=== PATIENT | female | born 1970 | race Caucasian/White ===

== ENCOUNTER 2016-11-21 10:21 | Emergency (ER) | payer MEDICARE, MEDICAID ==
[2016-11-21 11:58] LABS: BASOPHILS 0.1 % (0-2); EOSINOPHILS 0.1 % (0-7); HEMATOCRIT 42.3 % (36.0-48.0); HEMOGLOBIN 14.7 g/dL (12-16); IMMATURE GRANULOCYTES 0.2 % (0-5); LYMPHOCYTES 8.3 % (15-50); MCH 32.8 pg (26.0-34.0); MCHC 34.8 g/dL (31.0-37.0); MCV 94.4 fL (80.0-100.0); MEAN PLATELET VOLUME 11.3 fL (7.4-10.4); MONOCYTES 8.7 % (2-11); NEUTROPHILS 82.6 % (40-80); PLATELET COUNT 146 10x3/uL (130-400); RBC 4.48 10x6/uL (4.00-5.40); RDW 12.4 % (11.5-14.5); WBC 9.5 10x3/uL (4.8-10.8)
[2016-11-21 12:27] LABS: APPEARANCE CLOUDY (CLEAR); COLOR DK YELLOW (YELLOW)
[2016-11-21 12:28] LABS: BACTERIA MODERATE /hpf (NONE SEEN); BILIRUBIN NEGATIVE (NEGATIVE); EPITHELIAL CELLS RARE /hpf (0-5); GLUCOSE 1000 mg/dL (NEGATIVE); KETONE MODERATE mg/dL (NEGATIVE); LEUKOCYTE ESTERASE 1+ (NEGATIVE); NITRITE POSITIVE (NEGATIVE); PROTEIN 1+ mg/dL (NEGATIVE); RED CELLS - URINE 0-5 /hpf (0-5); SPECIFIC GRAVITY 1.015 (1.005-1.020); UROBILINOGEN NORMAL (NORMAL); WHITE CELLS - URINE 25-50 /hpf (0-5)
[2016-11-21 12:29] LABS: MUCUS <1+ /lpf (NONE SEEN)
== END 2016-11-21 12:39 | disposition home or self-care (01) ==
LOC: D.ER 10:21
PROVIDERS: Physician Assistant
DX: N39.0 Urinary tract infection, site not specified (principal); R50.9 Fever, unspecified; M54.5 Low back pain; R11.0 Nausea; R53.83 Other fatigue; R39.15 Urgency of urination; R30.0 Dysuria

== ENCOUNTER 2017-04-23 00:54 | Emergency (ER) | payer MEDICARE | END 2017-04-23 01:40 | disposition home or self-care (01) | LOC: D.ER 00:54 | DX: S93.402A Sprain of unspecified ligament of left ankle, initial encounter (principal); X58.XXXA Exposure to other specified factors, initial encounter; Y93.89 Activity, other specified; Y92.89 Other specified places as the place of occurrence of the external cause; E11.9 Type 2 diabetes mellitus without complications; F17.200 Nicotine dependence, unspecified, uncomplicated ==

== ENCOUNTER 2017-05-27 15:05 | Emergency (ER) | payer MEDICARE | END 2017-05-27 21:43 | disposition home or self-care (01) | LOC: D.ER 15:05 | DX: S92.341A Displaced fracture of fourth metatarsal bone, right foot, initial encounter for closed fracture (principal); X58.XXXA Exposure to other specified factors, initial encounter; Y93.89 Activity, other specified; Y92.89 Other specified places as the place of occurrence of the external cause; F17.200 Nicotine dependence, unspecified, uncomplicated ==

== ENCOUNTER 2017-12-17 16:51 | Observation (INO) | payer MEDICARE ==
[~2017-12-17] VITALS: Ht 160 cm; Wt 96.4 kg
--- NOTE | ~2017-12-17 | HP ---
PATIENT: SOLOMON FERNANDEZ MEDICAL RECORD: [id number] ACCOUNT: [id number] LOCATION:[facility] : 66 ADMISSION DATE: 12/17/17 HISTORY AND PHYSICAL EXAMINATION DATE OF ADMISSION: 12/18/2017 CHIEF COMPLAINT: Left foot pain. HISTORY OF PRESENT ILLNESS: This is a 47-year-old female with history of diabetes, peripheral neuropathy, bipolar illness who came to the ER last night with increased pain and swelling in her left foot. She was found on plain film x-ray to have a fracture of the base of the first metatarsal with partial dislocation. CT of the foot showed fractures at the bases of metatarsals 1, 2 and 3 and probable avulsion fracture to the lateral aspect of the medial cuneiform bone, most consistent with a Lisfranc injury. She is admitted. The patient was seen by me 12/09/2017 for increased pain in her left foot. She has been to a walk-in clinic for pain and swelling. She was diagnosed with cellulitis there. There was no history of any trauma. She was started on oral antibiotic and it did not help. I saw her on the and gave her a shot of Rocephin, I had her come back the next day for another shot of Rocephin, and then a third day for Rocephin and her cellulitis was better and her pain was better. Put her on Augmentin p.o. and have not seen her basically in a week. Today, the foot is much more swollen and again she denies any trauma to the foot. PAST MEDICAL AND SURGICAL HISTORY: Diabetes, bipolar illness, peripheral neuropathy. She was seen in the ER here at [facility] in May and had an x-ray of the left foot showing a minimal angulated obliquely oriented fracture of the fourth metatarsal head. PAST SURGICAL HISTORY: Cholecystectomy, , ventral hernia repair, tonsillectomy. ALLERGIES: LEVAQUIN. HOME MEDICATIONS: Include Levemir 90 units subcutaneously once a day. She has had prescriptions for Tylenol No. 3 and then hydrocodone. She has been on Abilify 5 once a day and atorvastatin 10 once a day, and metformin 850 mg 3 times a day, I am not sure if she continues these right now or not. HABITS: She does smoke. Denies alcohol or drug use. SOCIAL HISTORY: Lives with significant other. She is on disability. FAMILY HISTORY: Father at 63 of an [place]. Mother at 65 of an [place]. REVIEW OF SYSTEMS: GENERAL: No major weight changes. HEENT: No particular sinus or allergy problems. RESPIRATORY: No diagnosis of asthma or COPD, though she is a long time current every day smoker. CARDIAC: No history of heart disease at this time. GASTROINTESTINAL: Denies diarrhea, constipation or heartburn. GENITOURINARY: No significant problems there. HISTORY AND PHYSICAL [id number] SOLOMON FERNANDEZ MUSCULOSKELETAL: Has had various aches and pains for a long time and peripheral neuropathy. PSYCHIATRIC: She has history of bipolar illness. PHYSICAL EXAMINATION: VITAL SIGNS: Today, temperature 99.1, pulse 89, respirations 18, blood pressure 167/86, O2 sat 93%. GENERAL: She does not appear in distress. HEENT: Unremarkable. NECK: Supple. No JVD or bruit. HEART: Regular rate and rhythm. LUNGS: Clear. ABDOMEN: Soft. EXTREMITIES: All okay except the left foot shows some mild cellulitis. No open wounds. There is swelling across the dorsum of the foot, which was not there last week. There is generalized pain to palpation anywhere over the dorsum of the foot. She has decreased range of motion of the toes due to pain in the foot. IMAGING: X-ray of the left foot showed fracture of the base of the first metatarsal with partial dislocation. CT of the foot showed fractures at the bases of the metatarsals, #1, 2 and 3 and probable avulsion fracture of the lateral aspect of the medial cuneiform consistent with the Lisfranc injury. ASSESSMENT: 1. Fractures of the foot. 2. Mild cellulitis. 3. Diabetes. 4. Peripheral neuropathy. 5. Bipolar illness. PLAN: Orthopedics has been consulted. She has been placed on antibiotics. Other tests or procedures as warranted. TRANSINT:[id number] Voice Confirmation ID: [id number] DOCUMENT ID: [id number] PRIMO GARBER MD at 1357 CC: [id number] DICTATION DATE: 12/18/17 0847 DEPILATORY PAINTER: 12/18/17 0952 [facility] [place] [place] [id number] [place] [address]
[2017-12-17] MEDS ORDERED: LEVEMIR100 U/M1 SC (17:47)
[2017-12-17 18:19] LABS: BASOPHILS 0.2 % (0-2); EOSINOPHILS 1.1 % (0-7); HEMATOCRIT 43.3 % (36.0-48.0); HEMOGLOBIN 15.1 g/dL (12-16); IMMATURE GRANULOCYTES 0.2 % (0-5); LYMPHOCYTES 28.1 % (15-50); MCH 32.2 pg (26.0-34.0); MCHC 34.9 g/dL (31.0-37.0); MCV 92.3 fL (80.0-100.0); MEAN PLATELET VOLUME 10.7 fL (7.4-10.4); MONOCYTES 6.7 % (2-11); NEUTROPHILS 63.7 % (40-80); RBC 4.69 10x6/uL (4.00-5.40); RDW 12.3 % (11.5-14.5); WBC 8.2 10x3/uL (4.8-10.8)
[2017-12-17 18:23] LABS: PLATELET COUNT 217 10x3/uL (130-400)
[2017-12-17 18:30] LABS: APTT 24.8 SECONDS (22.8-39.4); INR 0.91 (0.85-1.17); PROTIME 11.9 SECONDS (11.6-15.0)
[2017-12-17 18:31] LABS: D-DIMER-QUANTITATIVE 3.04 ug/mLFEU (0.20-0.54)
[2017-12-17 18:36] LABS: ALBUMIN 2.7 g/dL (3.4-5.0); ALKALINE PHOSPHATASE 124 U/L (46-116); ALT (SGPT) 27 U/L (10-68); BILIRUBIN - TOTAL 0.29 mg/dL (0.2-1.3); CALC OSMOLALITY 280 mosm/kg (275-300); CALCIUM 8.3 mg/dL (8.5-10.1); CARBON DIOXIDE 30.3 mmol/L (21.0-32.0); CHLORIDE - SERUM 102 mmol/L (98-107); CREATININE - SERUM 0.7 mg/dL (0.6-1.3); POTASSIUM - SERUM 3.5 mmol/L (3.5-5.1); PROTEIN - SERUM 6.9 g/dL (6.4-8.2); SODIUM 136 mmol/L (136-145); UREA NITROGEN 6 mg/dL (7-18); eGFR NON AFRICAN AMERICAN > 90 mL/min (90-120)
[2017-12-17 18:37] LABS: GLUCOSE 289 mg/dL (74-106)
[2017-12-18] VITALS: BP 116/77
[2017-12-18 03:52] VITALS: BP 116/77; Ht 160 cm; Wt 96.4 kg
[2017-12-18 04:00] VITALS: BP 147/86
[2017-12-18 08:11] VITALS: BP 167/86
[2017-12-18 12:32] VITALS: BP 140/98
[2017-12-18] MEDS ORDERED: HYDROCODONE-APA1 TAB PO (14:00)
[2018-01-05] MEDS ORDERED: NORCO 10-325 TA1 TAB PO (08:29)
== END 2017-12-18 15:19 | disposition home or self-care (01) ==
LOC: D.ER 16:51 → OBSVTIME 23:13 → D.MS 23:13 → D.ER 23:13 → D.MS 23:13
PROVIDERS: Family Medicine
DX: L03.116 Cellulitis of left lower limb (principal); S93.325A Dislocation of tarsometatarsal joint of left foot, initial encounter; S92.312A Displaced fracture of first metatarsal bone, left foot, initial encounter for closed fracture; S92.322A Displaced fracture of second metatarsal bone, left foot, initial encounter for closed fracture; S92.335A Nondisplaced fracture of third metatarsal bone, left foot, initial encounter for closed fracture; W19.XXXA Unspecified fall, initial encounter; E11.42 Type 2 diabetes mellitus with diabetic polyneuropathy; F31.9 Bipolar disorder, unspecified; F17.200 Nicotine dependence, unspecified, uncomplicated

== ENCOUNTER 2017-12-23 08:30 | Day surgery (SDC) | payer MEDICARE ==
[2017-12-22 10:30] LABS: HEMATOCRIT 41.5 % (36.0-48.0); HEMOGLOBIN 14.1 g/dL (12-16); MCV 94.3 fL (80.0-100.0); MEAN PLATELET VOLUME 10.7 fL (7.4-10.4); RBC 4.4 10x6/uL (4.00-5.40); RDW 12.5 % (11.5-14.5); WBC 4.8 10x3/uL (4.8-10.8)
[2017-12-22 10:45] LABS: CALC OSMOLALITY 286 mosm/kg (275-300); CALCIUM 7.9 mg/dL (8.5-10.1); CARBON DIOXIDE 30.1 mmol/L (21.0-32.0); CHLORIDE - SERUM 102 mmol/L (98-107); CREATININE - SERUM 0.8 mg/dL (0.6-1.3); POTASSIUM - SERUM 4.1 mmol/L (3.5-5.1); SODIUM 137 mmol/L (136-145); UREA NITROGEN 10 mg/dL (7-18); eGFR NON AFRICAN AMERICAN 81 mL/min (90-120)
[2017-12-22 10:46] LABS: GLUCOSE 349 mg/dL (74-106)
[~2017-12-23] VITALS: Ht 160 cm; Wt 96.2 kg
[~2017-12-23 08:30] MED LIST: HYDROCODONE-APA1 TAB PO; LEVEMIR100 U/M1 SC
[2017-12-23] MEDS ORDERED: NORCO 7.5/325 T1 TA1 PO (10:18)
[2017-12-23 10:20] VITALS: Ht 160 cm; Wt 96.2 kg
[2017-12-23 10:56] LABS: HCG URINE NEGATIVE (NEGATIVE)
[2018-01-05] MEDS ORDERED: NORCO 10-325 TA1 TAB PO (08:29)
== END 2017-12-23 16:50 | disposition home or self-care (01) ==
LOC: D.OPS 08:30 → D.PAN 10:15 → D.OPS 10:45
PROVIDERS: Anesthesiology; Orthopaedic Surgery
DX: S93.325A Dislocation of tarsometatarsal joint of left foot, initial encounter (principal); Z01.812 Encounter for preprocedural laboratory examination; G62.89 Other specified polyneuropathies

== ENCOUNTER 2017-12-30 00:46 | Emergency (ER) | payer MEDICARE, MEDICAID ==
[~2017-12-30] VITALS: Ht 160 cm; Wt 96.2 kg
[~2017-12-30 00:46] MED LIST changes: +NORCO 7.5/325 T1 TA1 PO
[2017-12-30 00:50] VITALS: Ht 160 cm; Wt 96.2 kg
[2017-12-30 01:58] LABS: BASOPHILS 0.3 % (0-2); EOSINOPHILS 1.2 % (0-7); HEMATOCRIT 41.8 % (36.0-48.0); HEMOGLOBIN 14.3 g/dL (12-16); IMMATURE GRANULOCYTES 0.3 % (0-5); LYMPHOCYTES 22.1 % (15-50); MCH 31.9 pg (26.0-34.0); MCHC 34.2 g/dL (31.0-37.0); MCV 93.3 fL (80.0-100.0); MEAN PLATELET VOLUME 10.7 fL (7.4-10.4); MONOCYTES 11.1 % (2-11); PLATELET COUNT 290 10x3/uL (130-400); RBC 4.48 10x6/uL (4.00-5.40); RDW 12.6 % (11.5-14.5); WBC 6.8 10x3/uL (4.8-10.8)
[2017-12-30 02:15] LABS: ALBUMIN 2.6 g/dL (3.4-5.0); ANION GAP 12.3 mmol/L (8-16); BILIRUBIN - TOTAL 0.27 mg/dL (0.2-1.3); CALCIUM 8.4 mg/dL (8.5-10.1); CARBON DIOXIDE 29.6 mmol/L (21.0-32.0); CREATININE - SERUM 0.9 mg/dL (0.6-1.3); POTASSIUM - SERUM 3.9 mmol/L (3.5-5.1); PROTEIN - SERUM 7.4 g/dL (6.4-8.2)
[2017-12-30] MEDS ORDERED: NORCO 7.5/325 T1 TA1 PO (02:31)
[2017-12-30] MEDS ORDERED: CLEOCIN HCL300 MG PO (02:32)
[2017-12-30 02:45] VITALS: BP 168/88
[2018-01-05] MEDS ORDERED: NORCO 10-325 TA1 TAB PO (08:29)
== END 2017-12-30 02:45 | disposition home or self-care (01) ==
LOC: D.ER 00:46
PROVIDERS: Family Medicine
DX: G89.18 Other acute postprocedural pain (principal)

== ENCOUNTER 2018-01-06 09:15 | Inpatient (IN) | payer MEDICARE, MEDICAID ==
[2018-01-05 09:05] LABS: BASOPHILS 0.3 % (0-2); EOSINOPHILS 1.3 % (0-7); HEMATOCRIT 44.4 % (36.0-48.0); HEMOGLOBIN 15.2 g/dL (12-16); IMMATURE GRANULOCYTES 0.4 % (0-5); LYMPHOCYTES 22.8 % (15-50); MCH 31.7 pg (26.0-34.0); MCHC 34.2 g/dL (31.0-37.0); MCV 92.7 fL (80.0-100.0); MEAN PLATELET VOLUME 10.9 fL (7.4-10.4); MONOCYTES 6.7 % (2-11); NEUTROPHILS 68.5 % (40-80); PLATELET COUNT 267 10x3/uL (130-400); RBC 4.79 10x6/uL (4.00-5.40); RDW 12.6 % (11.5-14.5); WBC 7.9 10x3/uL (4.8-10.8)
[2018-01-05 09:19] LABS: C-REACTIVE PROTEIN 2.7 mg/dL (0.0-0.9); CALC OSMOLALITY 288 mosm/kg (275-300); CALCIUM 8.6 mg/dL (8.5-10.1); CARBON DIOXIDE 26.3 mmol/L (21.0-32.0); CHLORIDE - SERUM 99 mmol/L (98-107); CREATININE - SERUM 0.7 mg/dL (0.6-1.3); POTASSIUM - SERUM 4.7 mmol/L (3.5-5.1); SODIUM 134 mmol/L (136-145); UREA NITROGEN 15 mg/dL (7-18); eGFR NON AFRICAN AMERICAN > 90 mL/min (90-120)
[2018-01-05 09:27] LABS: GLUCOSE 462 mg/dL (74-106)
[2018-01-05 10:11] LABS: ERYTHROCYTE SEDIMENTATION RATE 20 mm/hr (0-20)
[~2018-01-06] VITALS: Ht 160 cm; Wt 96.4 kg
--- NOTE | ~2018-01-06 | CN ---
PATIENT NAME:SOLOMON FERNANDEZ MEDICAL RECORD: [id number] : 66 LOCATION:[facility] ADMIT DATE: 01/06/18 ACCOUNT: [id number] CONSULTING PHYSICIAN: PRMIO GARBER MD REFERRING PHYSICIAN: GUALBERTO SANDERS MD DATE OF CONSULTATION: 01/06/2018 DATE OF ADMISSION: 01/06/2018 REASON FOR CONSULTATION: This is a consult requested by Dr. Sanders for medical management. HISTORY: This is a 47-year-old female who underwent left foot Lisfranc reduction with fusion of first through third metatarsal joints on 12/23/2017. She is brought in today for possible early infection versus hematoma. The patient underwent left foot recurrent Lisfranc ORIF as well as deep I&D of hematoma versus infection and left foot deep hardware removal. PAST MEDICAL HISTORY: The patient has past medical history of diabetes, bipolar illness, and peripheral neuropathy. PAST SURGICAL HISTORY: Cholecystectomy, , ventral hernia repair, tonsillectomy, and foot surgery done on December [address] Sanders. ALLERGIES: LEVAQUIN. HOME MEDICATIONS: She is taking Levemir 90 units subcutaneously a day as well as hydrocodone 10 p.r.n. pain. HABITS: She smokes. Denies alcohol or drug use. SOCIAL HISTORY: Lives with significant other. She is on disability. FAMILY HISTORY: Father at 63 of an [place]. Mother at 65 of an [place]. PHYSICAL EXAMINATION: VITAL SIGNS: Temperature 97.9, pulse 87, respirations 16, and blood pressure 123/61. GENERAL: She is awake and alert. She just got back from smoking. She was transferred to the hospital bed without weightbearing on the left leg. HEENT: Grossly within normal limits. NECK: Supple. HEART: Regular rate and rhythm. LUNGS: Clear. ABDOMEN: Soft, flat, and nontender. EXTREMITIES: The left foot is in a boot with dressings and drain. ASSESSMENT: 1. Diabetes. 2. Bipolar illness. 3. ORIF, left foot, with I&D and removal of hardware. PLAN: We will monitor her diabetes and put her on sliding scale. Continue her long-lasting insulin. We will monitor blood pressure and diabetes. CONSULT REPORT [id number] SOLOMON FERNANDEZ Thank you for the admit. TRANSINT:[id number] Voice Confirmation ID: [id number] DOCUMENT ID: [id number] PRIMO GARBER MD at 2134 CC: [id number] DICTATION DATE: 01/06/181929 SENIOR FIELD ENGINEER: 01/06/181950 ADM IN [facility] [address] [id number]
[~2018-01-06 09:15] MED LIST changes: +CLEOCIN HCL300 MG PO; +NORCO 10-325 TA1 TAB PO
[2018-01-06 09:45] VITALS: BP 123/61; BMI 37.6
[2018-01-06 11:19] LABS: HCG URINE NEGATIVE (NEGATIVE)
[2018-01-06 18:54] LABS: BASOPHILS 0.2 % (0-2); EOSINOPHILS 0.6 % (0-7); HEMATOCRIT 42.7 % (36.0-48.0); HEMOGLOBIN 14.5 g/dL (12-16); IMMATURE GRANULOCYTES 0.3 % (0-5); LYMPHOCYTES 14.9 % (15-50); MCH 31.5 pg (26.0-34.0); MCV 92.6 fL (80.0-100.0); MEAN PLATELET VOLUME 11.1 fL (7.4-10.4); MONOCYTES 6.3 % (2-11); NEUTROPHILS 77.7 % (40-80); PLATELET COUNT 240 10x3/uL (130-400); RBC 4.61 10x6/uL (4.00-5.40); RDW 12.8 % (11.5-14.5)
[2018-01-06 19:25] LABS: WBC 12.5 10x3/uL (4.8-10.8)
[2018-01-06 19:57] LABS: ANION GAP 13.8 mmol/L (8-16); CALCIUM 8.1 mg/dL (8.5-10.1); CARBON DIOXIDE 24.6 mmol/L (21.0-32.0); POTASSIUM - SERUM 4.4 mmol/L (3.5-5.1)
[2018-01-06 20:00] VITALS: BP 123/72
[2018-01-06 20:10] LABS: CREATININE - SERUM 0.9 mg/dL (0.6-1.3)
[2018-01-07 04:53] VITALS: Ht 160 cm; Wt 96.4 kg
[2018-01-07 09:10] VITALS: BP 115/71
[2018-01-07 11:58] VITALS: BP 137/82
[2018-01-07 20:00] VITALS: BP 130/70
[2018-01-08 03:26] VITALS: BP 90/59
[2018-01-08 08:48] VITALS: BP 156/69
[2018-01-08 16:56] VITALS: BP 140/78
[2018-01-08 22:31] VITALS: BP 137/67
[2018-01-09 04:00] VITALS: BP 162/89
[2018-01-09 09:13] VITALS: BP 125/94
[2018-01-09 17:18] VITALS: BP 156/94
[2018-01-09 20:00] VITALS: BP 164/88
[2018-01-09 23:45] VITALS: BP 145/83
[2018-01-10 06:44] LABS: CALC OSMOLALITY 277 mosm/kg (275-300); CALCIUM 8.5 mg/dL (8.5-10.1); CHLORIDE - SERUM 103 mmol/L (98-107); CREATININE - SERUM 0.6 mg/dL (0.6-1.3); POTASSIUM - SERUM 3.7 mmol/L (3.5-5.1); SODIUM 137 mmol/L (136-145); UREA NITROGEN 11 mg/dL (7-18); eGFR NON AFRICAN AMERICAN > 90 mL/min (90-120)
[2018-01-10 06:46] LABS: GLUCOSE 195 mg/dL (74-106)
[2018-01-10 09:10] VITALS: BP 131/79
[2018-01-10 20:23] VITALS: BP 157/88
[2018-01-11 06:47] LABS: BASOPHILS 0.3 % (0-2); HEMOGLOBIN 12.3 g/dL (12-16); IMMATURE GRANULOCYTES 0.3 % (0-5); LYMPHOCYTES 22.7 % (15-50); MCH 30.9 pg (26.0-34.0); MCHC 33.2 g/dL (31.0-37.0); MEAN PLATELET VOLUME 11.7 fL (7.4-10.4); MONOCYTES 8.4 % (2-11); NEUTROPHILS 67.3 % (40-80); PLATELET COUNT 246 10x3/uL (130-400); RBC 3.98 10x6/uL (4.00-5.40); WBC 7.8 10x3/uL (4.8-10.8)
[2018-01-11 06:58] LABS: CALC OSMOLALITY 275 mosm/kg (275-300); CALCIUM 8.4 mg/dL (8.5-10.1); CARBON DIOXIDE 28.1 mmol/L (21.0-32.0); CHLORIDE - SERUM 104 mmol/L (98-107); CREATININE - SERUM 0.5 mg/dL (0.6-1.3); GLUCOSE 160 mg/dL (74-106); POTASSIUM - SERUM 3.9 mmol/L (3.5-5.1); SODIUM 137 mmol/L (136-145); UREA NITROGEN 9 mg/dL (7-18); eGFR NON AFRICAN AMERICAN > 90 mL/min (90-120)
[2018-01-11 08:08] VITALS: BP 141/81
[2018-01-11 16:41] VITALS: BP 156/92
== END 2018-01-11 20:00 | disposition home health service (06) | DRG 908 ==
LOC: D.MS 09:15 → D.OPS 09:15 → D.PAN 10:30 → D.OPS 10:30 → D.MS 18:21 → D.OPS 18:22 → D.MS 01-11 20:00
PROVIDERS: Anesthesiology; Family Medicine; Orthopaedic Surgery; Student in an Organized Health Care Education/Training Program
PROC: 0QPP04Z Removal of Internal Fixation Device from Left Metatarsal, Open Approach (ICD-10-PCS; 2018-01-06)
PROC: 0Y9N0ZZ Drainage of Left Foot, Open Approach (ICD-10-PCS; 2018-01-06)
PROC: 0QSP04Z Reposition Left Metatarsal with Internal Fixation Device, Open Approach (ICD-10-PCS; principal; 2018-01-06 10:30)
DX: M96.840 Postprocedural hematoma of a musculoskeletal structure following a musculoskeletal system procedure (principal); T81.4XXA Infection following a procedure, initial encounter; L03.116 Cellulitis of left lower limb; S92.312G Displaced fracture of first metatarsal bone, left foot, subsequent encounter for fracture with delayed healing; S92.322G Displaced fracture of second metatarsal bone, left foot, subsequent encounter for fracture with delayed healing; Y83.8 Other surgical procedures as the cause of abnormal reaction of the patient, or of later complication, without mention of misadventure at the time of the procedure; E11.9 Type 2 diabetes mellitus without complications; F31.9 Bipolar disorder, unspecified; F17.200 Nicotine dependence, unspecified, uncomplicated

== ENCOUNTER → 2018-01-14 09:19 | Outpatient (CLI) | payer MEDICARE, MEDICAID ==
[2018-01-07 04:53] VITALS: BMI 37.6
== END | disposition home or self-care (01) ==
LOC: D.LABREF 09:19
DX: M86.9 Osteomyelitis, unspecified (principal)

== ENCOUNTER 2018-01-17 12:44 | Emergency (ER) | payer MEDICARE, MEDICAID ==
[~2018-01-17] VITALS: Ht 160 cm; Wt 99.1 kg
[2018-01-17 12:46] VITALS: Ht 160 cm; Wt 99.1 kg
[2018-01-17 14:00] VITALS: BP 144/65
== END 2018-01-17 14:01 | disposition home or self-care (01) ==
LOC: D.ER 12:44
DX: Z48.00 Encounter for change or removal of nonsurgical wound dressing (principal); E11.9 Type 2 diabetes mellitus without complications; K21.9 Gastro-esophageal reflux disease without esophagitis; F17.200 Nicotine dependence, unspecified, uncomplicated

== ENCOUNTER → 2018-01-18 09:51 | Outpatient (CLI) | payer MEDICARE, MEDICAID ==
[2018-01-17 12:46] VITALS: BMI 38.7
[2018-01-18 13:15] LABS: BASOPHILS 0.4 % (0-2); EOSINOPHILS 1.3 % (0-7); HEMOGLOBIN 14.3 g/dL (12-16); IMMATURE GRANULOCYTES 0.2 % (0-5); LYMPHOCYTES 25.2 % (15-50); MCH 31.2 pg (26.0-34.0); MCV 91.5 fL (80.0-100.0); MEAN PLATELET VOLUME 11.4 fL (7.4-10.4); MONOCYTES 7.6 % (2-11); NEUTROPHILS 65.3 % (40-80); PLATELET COUNT 269 10x3/uL (130-400); RBC 4.59 10x6/uL (4.00-5.40); WBC 8.3 10x3/uL (4.8-10.8)
[2018-01-18 13:34] LABS: CREATININE - SERUM 0.5 mg/dL (0.6-1.3); VANCOMYCIN - TROUGH 8.7 ug/mL (10.0-20.0)
[2018-01-18 14:48] LABS: ERYTHROCYTE SEDIMENTATION RATE 73 mm/hr (0-20)
== END | disposition home or self-care (01) ==
LOC: D.LABREF 09:51
PROVIDERS: Orthopaedic Surgery
DX: M86.9 Osteomyelitis, unspecified (principal); Z51.81 Encounter for therapeutic drug level monitoring; Z79.2 Long term (current) use of antibiotics

== ENCOUNTER → 2018-01-26 09:30 | Outpatient (CLI) | payer MEDICARE, MEDICAID ==
[2018-01-17 12:46] VITALS: BMI 38.7
[2018-01-26 10:52] LABS: BASOPHILS 0.3 % (0-2); EOSINOPHILS 1.3 % (0-7); HEMATOCRIT 42.4 % (36.0-48.0); HEMOGLOBIN 14.3 g/dL (12-16); IMMATURE GRANULOCYTES 0.2 % (0-5); LYMPHOCYTES 25.5 % (15-50); MCH 30.9 pg (26.0-34.0); MCHC 33.7 g/dL (31.0-37.0); MCV 91.6 fL (80.0-100.0); MEAN PLATELET VOLUME 11.7 fL (7.4-10.4); MONOCYTES 8.6 % (2-11); NEUTROPHILS 64.1 % (40-80); RBC 4.63 10x6/uL (4.00-5.40); RDW 13.2 % (11.5-14.5)
[2018-01-26 10:53] LABS: PLATELET COUNT 208 10x3/uL (130-400)
[2018-01-26 11:01] LABS: C-REACTIVE PROTEIN 2.5 mg/dL (0.0-0.9); CREATININE - SERUM 0.7 mg/dL (0.6-1.3); VANCOMYCIN - TROUGH 14.6 ug/mL (10.0-20.0)
[2018-01-26 12:09] LABS: ERYTHROCYTE SEDIMENTATION RATE 36 mm/hr (0-20)
== END | disposition home or self-care (01) ==
LOC: D.LABREF 09:30
PROVIDERS: Orthopaedic Surgery
DX: M86.9 Osteomyelitis, unspecified (principal)

== ENCOUNTER → 2018-02-01 11:35 | Outpatient (CLI) | payer MEDICARE, MEDICAID ==
[2018-01-17 12:46] VITALS: BMI 38.7
[2018-02-01 12:10] LABS: C-REACTIVE PROTEIN 1.1 mg/dL (0.0-0.9); CREATININE - SERUM 0.5 mg/dL (0.6-1.3); VANCOMYCIN - TROUGH 13.9 ug/mL (10.0-20.0)
[2018-02-01 12:47] LABS: HEMATOCRIT 45.8 % (36.0-48.0); HEMOGLOBIN 15.9 g/dL (12-16); LYMPHOCYTES 26.7 % (15-50); MCH 30.7 pg (26.0-34.0); MCHC 34.7 g/dL (31.0-37.0); MCV 88.4 fL (80.0-100.0); MEAN PLATELET VOLUME 11.3 fL (7.4-10.4); NEUTROPHILS 62.8 % (40-80); PLATELET COUNT 167 10x3/uL (130-400); RBC 5.18 10x6/uL (4.00-5.40); RDW 13.4 % (11.5-14.5); WBC 6.2 10x3/uL (4.8-10.8)
[2018-02-01 14:04] LABS: ERYTHROCYTE SEDIMENTATION RATE 15 mm/hr (0-20)
== END | disposition home or self-care (01) ==
LOC: D.LABREF 11:35
PROVIDERS: Orthopaedic Surgery
DX: M86.9 Osteomyelitis, unspecified (principal)

== ENCOUNTER → 2018-02-08 17:55 | Outpatient (CLI) | payer MEDICARE, MEDICAID ==
[2018-01-17 12:46] VITALS: BMI 38.7
[2018-02-08 18:06] LABS: BASOPHILS 0.2 % (0-2); EOSINOPHILS 2.7 % (0-7); HEMOGLOBIN 15.2 g/dL (12-16); IMMATURE GRANULOCYTES 0.2 % (0-5); LYMPHOCYTES 26.4 % (15-50); MCH 31.2 pg (26.0-34.0); MCHC 33.8 g/dL (31.0-37.0); MCV 92.4 fL (80.0-100.0); MEAN PLATELET VOLUME 12.1 fL (7.4-10.4); MONOCYTES 7.4 % (2-11); NEUTROPHILS 63.1 % (40-80); PLATELET COUNT 180 10x3/uL (130-400); RBC 4.87 10x6/uL (4.00-5.40); RDW 13.9 % (11.5-14.5); WBC 6.2 10x3/uL (4.8-10.8)
[2018-02-08 18:18] LABS: CREATININE - SERUM 0.6 mg/dL (0.6-1.3); VANCOMYCIN - TROUGH 14.5 ug/mL (10.0-20.0)
[2018-02-08 19:12] LABS: ERYTHROCYTE SEDIMENTATION RATE 8 mm/hr (0-20)
== END | disposition home or self-care (01) ==
LOC: D.LABREF 17:55
PROVIDERS: Orthopaedic Surgery
DX: Z51.81 Encounter for therapeutic drug level monitoring (principal); Z79.2 Long term (current) use of antibiotics; M86.9 Osteomyelitis, unspecified

== ENCOUNTER → 2018-02-15 11:25 | Outpatient (CLI) | payer MEDICARE, MEDICAID ==
[2018-01-17 12:46] VITALS: BMI 38.7
[2018-02-15 13:35] LABS: BASOPHILS 0.1 % (0-2); EOSINOPHILS 1.9 % (0-7); HEMATOCRIT 45.4 % (36.0-48.0); HEMOGLOBIN 15.8 g/dL (12-16); IMMATURE GRANULOCYTES 0.3 % (0-5); LYMPHOCYTES 28.8 % (15-50); MCH 31.4 pg (26.0-34.0); MCHC 34.8 g/dL (31.0-37.0); MCV 90.3 fL (80.0-100.0); MEAN PLATELET VOLUME 11.6 fL (7.4-10.4); MONOCYTES 6.3 % (2-11); NEUTROPHILS 62.6 % (40-80); PLATELET COUNT 203 10x3/uL (130-400); RBC 5.03 10x6/uL (4.00-5.40); RDW 13.9 % (11.5-14.5); WBC 7.2 10x3/uL (4.8-10.8)
[2018-02-15 13:48] LABS: CREATININE - SERUM 0.6 mg/dL (0.6-1.3)
== END | disposition home or self-care (01) ==
LOC: D.LABREF 11:25 → D.LDO 11:25
PROVIDERS: Student in an Organized Health Care Education/Training Program
DX: Z51.81 Encounter for therapeutic drug level monitoring (principal); Z79.2 Long term (current) use of antibiotics

== ENCOUNTER 2018-02-17 12:51 | Outpatient (CLI) | payer MEDICARE, MEDICAID ==
[~2018-02-17] VITALS: Ht 160 cm; Wt 94.5 kg
[2018-02-17 13:29] VITALS: BP 150/90; Ht 160 cm; Wt 94.5 kg
== END 2018-02-17 13:47 | disposition home or self-care (01) ==
LOC: D.OPS 12:51
DX: Z79.2 Long term (current) use of antibiotics (principal)

== ENCOUNTER 2019-01-27 10:00 | Outpatient (CLI) | payer MEDICARE, MEDICAID ==
[2018-02-17 13:29] VITALS: BMI 36.9
== END 2019-01-27 11:00 | disposition home or self-care (01) ==
LOC: D.MAMMO 10:00
PROVIDERS: ATTEND Family Medicine
DX: Z12.31 Encounter for screening mammogram for malignant neoplasm of breast (principal)

== ENCOUNTER → 2020-01-18 11:02 | Outpatient (CLI) | payer MEDICARE, MEDICAID ==
[2018-02-17 13:29] VITALS: BMI 36.9
== END | disposition home or self-care (01) ==
LOC: D.MRI 11:00
PROVIDERS: ATTEND Orthopaedic Surgery
DX: S92.001A Unspecified fracture of right calcaneus, initial encounter for closed fracture (principal)